=== PATIENT | female | born 1965 | race Caucasian/White ===

== ENCOUNTER 2020-01-22 08:36 | Outpatient (CLI) | payer BC, SELFPAY ==
--- NOTE | 2020-01-22 08:45 | MM_ITS ---
WS: [id number] Bilateral screening digital mammogram, 01/22/2020 Clinical Data: SCREENING Comparison: 02/22/2017, 01/16/2009. Findings: The breast parenchymal pattern shows fat replacement. No spiculated masses or clustered calcification s are seen. There are no secondary signs of carcinoma. MM/[id number] Impression: 1. Negative bilateral mammogram unchanged. 2. Recommend annual screening mammograms. BIRADS: 1-Negative FOLLOW UP: 1 Year Follow-up The CAD field checker was used.
== END 2020-01-22 08:37 | disposition home or self-care (01) ==
LOC: RADSHAW 08:41
PROVIDERS: Family Provider Family Medicine; PCP Family Medicine; Visit Provider Nurse Practitioner Family
DX: Z12.31 Encounter for screening mammogram for malignant neoplasm of breast (principal)
CPT/HCPCS: 77067

== ENCOUNTER 2021-01-14 09:13 | Outpatient (CLI) | payer OTHER, SELFPAY ==
--- NOTE | 2021-01-14 09:25 | US_ITS ---
WS: [id number] TRANSABDOMINAL PELVIC AND TRANSVAGINAL PELVIC ULTRASOUND HISTORY: DYSMENORRHEA COMPARISON: 09/12/2014 Uterus: 7.7 cm x 5.4 cm x 4.6 cm. Uterus is midline and heterogeneous. Ill-defined fibroids are ident ified. The largest is towards the fundus measuring 2.9 x 2.3 x 2.1 cm. There may be additional smalle r fibroids which are ill-defined scattered throughout the heterogeneous myometrium. Endometrium: 0.4 cm. Normal Right ovary: 2.8 cm x 2.2 cm x 1.9 cm. Poorly visualized ovary. No obvious abnormality. Left ovary: Not visualized. No free fluid. US/US pelvic with transvaginal IMPRESSION: 1. Technically very difficult and limited evaluation of the uterus and adnexa. 2. Heterogeneous myometrium. Fibroid towards the fundus measures 2.9 x 2.3 x 2 .1 cm. Additional partially obscured fibroids may also be present. 3. Normal endometrium.
== END 2021-01-14 09:14 | disposition home or self-care (01) ==
PROVIDERS: PCP Family Medicine; Visit Provider Obstetrics & Gynecology
DX: N94.6 Dysmenorrhea, unspecified (principal)
CPT/HCPCS: 76830; 76856

== ENCOUNTER 2021-01-25 09:54 | Outpatient (CLI) | payer OTHER, SELFPAY ==
--- NOTE | 2021-01-25 10:00 | MM_ITS ---
WS: [id number] BILATERAL DIGITAL SCREENING MAMMOGRAPHY WITH CAD CLINICAL INFORMATION: SCREENING HISTORY: Screening mammogram. No current complaints. COMPARISON: January 22, 2020 TECHNIQUE: Bilateral CC and MLO views. FINDINGS: Scattered fibroglandular densities bilaterally. Stable scattered diffuse punctate calcifications. Sta ble intramammary lymph node right breast. Lucent centered calcifications right breast. No suspicious focal mass, asymmetry, calcifications, or architectural distortion. No evidence of malignancy. MM/[id number] IMPRESSION: BI-RADS: 2-Benign FOLLOW UP: 1 Year Follow-up Recommend return to annual screening mammography.
== END 2021-01-25 09:55 | disposition home or self-care (01) ==
LOC: RADSHAW 09:57
PROVIDERS: PCP Family Medicine; Visit Provider Obstetrics & Gynecology
DX: Z12.31 Encounter for screening mammogram for malignant neoplasm of breast (principal)
CPT/HCPCS: 77067